=== PATIENT | female | born 2000 | race Two or more races ===

== ENCOUNTER 2019-01-23 17:11 | Inpatient (IN) | payer MEDICAID, OTHER ==
[~2019-01-23] VITALS: Ht 167.6 cm; Wt 67.3 kg
[2019-01-23 18:28] LABS: Urine Bacteria NONE SEEN /hpf (None Seen); Urine Blood 2+ /uL (Negative); Urine Hyaline Cast FEW /lpf (0 - 2); Urine Mucus FEW (None Seen); Urine Specific Gravity 1.008 (1.001-1.035); Urine WBC 4 /hpf (0 - 5)
[2019-01-23 19:13] LABS: Basophils # (auto) 0 uL; Basophils % (auto) 0.2 % (0.0-2.0); Eosinophils # (auto) 0 uL; Mean Corpuscular Volume 76.4 fL (80.0-100.0); Monocytes # (auto) 0.7 uL
[2019-01-23 19:16] LABS: Hematocrit 36.1 % (36.0-46.0); Hemoglobin 11.7 g/dL (12.2-16.2); Mean Corpuscular Hemoglobin 24.9 pg (28.0-32.0); Mean Corpuscular Hgb Conc. 32.6 g/dL (32.0-36.0); Monocytes % (auto) 7.3 % (0.0-12.0); Neutrophils # (auto) 8.2 uL; Neutrophils % (auto) 82.5 % (37.0-80.0); Nucleated Red Blood Cells % 0.1 %; Platelet Count (auto) 207 10^3/uL (140-450); Red Blood Cells 4.72 10^6/uL (4.0-5.20)
[2019-01-23 19:31] LABS: Albumin 3.7 g/dL (3.4-5.0); Calcium 8.8 mg/dL (8.5-10.1); Potassium 3.3 mmol/L (3.5-5.1)
[2019-01-23 19:34] LABS: Bilirubin, Total 0.3 mg/dL (0.2-1.0); Total Protein 8.6 g/dL (6.4-8.2)
[2019-01-23] MEDS ORDERED: IBUPROFEN 600 MG TAB PO ONE (22:00)
[2019-01-23] MEDS ORDERED: SODIUM CHLORIDE 0.9% 1,000 ML IV ONE (22:00)
[2019-01-23] MEDS ORDERED: MORPHINE SULFATE 4 MG/ML SYR/VIAL IV ONE (22:00)
[2019-01-23] MEDS ORDERED: ONDANSETRON HCL 4 MG/2 ML VIAL IV ONE (22:00)
[2019-01-23 22:21] LABS: Amylase 33 U/L (25-115); Lipase 33 U/L (73-393)
[2019-01-24] MEDS ORDERED: SODIUM CHLORIDE 0.9% 1,000 ML IV ONE (00:30)
[2019-01-24] MEDS ORDERED: IOHEXOL 300 MG/ML 100ML BOTTLE IJ ONE (00:34)
[2019-01-24] MEDS ORDERED: cefTRIAXone 1GM/50ML D5W 50 ML IV ONE (02:00)
[2019-01-24] MEDS ORDERED: MORPHINE SULFATE 4 MG/ML SYR/VIAL IV ONE (02:15)
[2019-01-24] MEDS ORDERED: PROMETHAZINE HCL 25 MG/ML 1ML IV ONE (03:30)
[2019-01-24] MEDS ORDERED: HYDROcodone-ACET 5/325MG TAB PO PRN (04:30)
[2019-01-24] MEDS ORDERED: ONDANSETRON HCL 4 MG/2 ML VIAL IV PRN (04:30)
[2019-01-24] MEDS ORDERED: ACETAMINOPHEN 325 MG TAB PO PRN (04:30)
[2019-01-24] MEDS: metroNIDAZOLE 500MG/100ML 100 ML IV SCH ×3 (06:00→21:34)
--- NOTE | 2019-01-24 08:04 | NUR ---
MS admit from ER AIXA HICKS admitted to tele/MS after SBAR received. Patient oriented to MORALES MARTÍNEZ, RN primary RN, unit, room, bed, and unit policies regarding patient care and visiting hours. Patient weighed by bed scale and encouraged to call if they need something. All questions and concerns addressed, patient verbalized understanding.
--- NOTE | 2019-01-24 08:30 | NUR ---
Opening Shift Note Assumed care of patient, awake, alert, and oriented x4. No S/S of distress/SOB or pain. IV is in left AC 20 gauge asymptomatic, intact, patent, and saline locked. Bed is locked and in lowest position and call light is within reach. Instructed on POC and to call for assist PRN, and patient verbalized understanding. Will continue to monitor for changes Q1hr and PRN.
--- NOTE | 2019-01-24 08:45 | NUR ---
Patient tolerated liquid diet for breakfast.
[2019-01-24] MEDS: cefTRIAXone 1GM/50ML D5W 50 ML IV SCH (08:53)
[2019-01-24] MEDS ORDERED: GOLYTELY 4L KIT PO ONE (10:45)
--- NOTE | 2019-01-24 10:45 | NUR ---
Dr. Andrews, Flitch Hanger, at bedside. New orders received.
--- NOTE | 2019-01-24 11:17 | NUR ---
Patient has agreed to have colonoscopy tomorrow.
[2019-01-24] MEDS: FAMOTIDINE 20 MG TAB PO SCH ×2 (11:55→21:34)
[2019-01-24 13:00] VITALS: BP 91/50
--- NOTE | 2019-01-24 13:20 | NUR ---
Sent stool sample to micro lab for culture at 1320.
--- NOTE | 2019-01-24 15:23 | NUR ---
Unable to send C-Diff sample that was ordered to lab; patient had 3 bowel movements, mushy brown with hard pieces in them.
[2019-01-24] MEDS: POTASSIUM CHLORIDE 20 MEQ in D5W/LACTATED RINGERS 1,000 ML IV SCH ×2 (16:30→22:44)
[2019-01-24 17:02] LABS: INR 1.08 (0.9-1.15); Partial Thromboplastin Time 33.8 sec (23.64-32.05)
[2019-01-24 17:32] VITALS: BP 100/54
--- NOTE | 2019-01-24 18:37 | NUR ---
Patient signed consents for colonoscopy procedure tomorrow; pre-procedure checklist is complete, and patient is to be NPO starting at midnight.
--- NOTE | 2019-01-24 21:06 | NUR ---
Assumed Pt Care Assumed pt care from KADI Wilson. Pt is a/ox4 with no s/s of distress or SOB. Pt is currently laying in bed with no complaints surrounded by family members. Discussed POC with pt; pt verbalized understanding. Safety measures maintained with side rails up, bed in lowest position and call light within reach. Will Continue to monitor for changes q1hr and prn.
[2019-01-24 22:40] VITALS: BP 105/68
[2019-01-25 05:27] VITALS: BP 103/63
[2019-01-25] MEDS: metroNIDAZOLE 500MG/100ML 100 ML IV SCH ×2 (05:44→14:00)
[2019-01-25] MEDS ORDERED: GOLYTELY 4L KIT PO ONE (06:00)
[2019-01-25 06:27] LABS: Basophils # (auto) 0 uL; Eosinophils # (auto) 0.1 uL; Hemoglobin 9.4 g/dL (12.2-16.2); Monocytes # (auto) 0.6 uL; Neutrophils # (auto) 1.5 uL; White Blood Cell 3.5 10^3/uL (4.4-10.8)
[2019-01-25 06:29] LABS: Basophils % (auto) 0.9 % (0.0-2.0); Eosinophils % (auto) 1.6 % (0.0-7.0); Hematocrit 28.7 % (36.0-46.0); Lymphocytes # (auto) 1.4 uL; Lymphocytes % (auto) 38.7 % (10.0-50.0); Mean Corpuscular Hemoglobin 24.8 pg (28.0-32.0); Mean Corpuscular Hgb Conc. 32.9 g/dL (32.0-36.0); Mean Corpuscular Volume 75.6 fL (80.0-100.0); Neutrophils % (auto) 41.8 % (37.0-80.0); Platelet Count (auto) 160 10^3/uL (140-450); Red Cell Distribution Width 16.1 % (11.8-14.3)
[2019-01-25 06:41] LABS: Calcium 8.1 mg/dL (8.5-10.1); Potassium 3.5 mmol/L (3.5-5.1)
--- NOTE | 2019-01-25 07:30 | NUR ---
Opening Shift Note Assumed care of patient, awake, alert, and oriented x4. No S/S of distress/SOB or pain. IV is in left AC and is asymptomatic, patent, intact, and infusing normal saline with 20 meQ of potassium at 100 mL/hour. Bed is locked and in lowest position and call light is within reach. Instructed on POC and to call for assist PRN, and patient verbalized understanding. Will continue to monitor for changes Q1hr and PRN.
--- NOTE | 2019-01-25 08:00 | NUR ---
Patient has been NPO since 0000 01/25/19, for colonoscopy procedure this morning.
[2019-01-25] MEDS ORDERED: SODIUM CHLORIDE LOCK 10 ML ONE (08:49)
[2019-01-25] MEDS ORDERED: diphenhdrAMINE HCL 50 MG/1 ML VL ONE (08:50)
[2019-01-25 09:20] VITALS: BP 104/63
[2019-01-25] MEDS: FAMOTIDINE 20 MG TAB PO SCH (09:33)
[2019-01-25] MEDS: cefTRIAXone 1GM/50ML D5W 50 ML IV SCH (11:18)
--- NOTE | 2019-01-25 12:00 | NUR ---
Patient taken down to Pre-op via hospital bed; no distress noted at time of departure.
[2019-01-25] MEDS: MIDAZOLAM HCL 5 MG/ML-1ML VIAL ONE ×3 (12:21→12:28)
[2019-01-25] MEDS: fentaNYL CITRATE 100 MCG/2 ML VL ONE ×2 (12:21→12:24)
[2019-01-25] MEDS: POTASSIUM CHLORIDE 20 MEQ in D5W/LACTATED RINGERS 1,000 ML IV SCH (12:42)
[2019-01-25 13:37] VITALS: BP 99/61
--- NOTE | 2019-01-25 14:00 | NUR ---
Patient returned from Post-op via hospital bed; no distress noted at time of arrival.
[2019-01-25 16:36] VITALS: BP 106/67
[2019-01-25 17:49] VITALS: BP 106/67
--- NOTE | 2019-01-25 18:00 | NUR ---
Dr. Yves MD, at bedside. New orders received.
--- NOTE | 2019-01-25 18:59 | NUR ---
Discharge instructions given as ordered. Encourage to follow up with PMD as instructed. All questions and concerns addressed. Patient verbalized understanding. Medication reconciliation form completed and copy given to patient. IV removed with catheter intact. Patient taken to vehicle via wheelchair with all personal belongings, accompanied by staff and family member. No distress noted at time of departure.
== END 2019-01-25 19:08 | disposition home or self-care (01) | DRG 249 ==
LOC: ER 17:11 → OVERFLOW 17:12 → EAST 01-24 07:53
PROVIDERS: ADMIT Nurse Practitioner; ATTEND Hospitalist
PROC: 0DBF8ZZ Excision of Right Large Intestine, Via Natural or Artificial Opening Endoscopic (ICD-10-PCS; principal; 2019-01-25 12:18)
DX: K52.9 Noninfective gastroenteritis and colitis, unspecified (principal); E86.0 Dehydration
CPT/HCPCS: 36415; 45380; 74177; 76705; 80048; 80053; 81001; 81025; 82150; 83605; 83690; 85025; 85610; 85730; 86850; 86900; 86901; 87040; 87045; 87899; 94761; 96361; 96365; 96375; 96376; G0378; J0696; J2250; J2405; J3490

== ENCOUNTER 2020-03-08 11:59 | Emergency (ER) | payer SELFPAY ==
[~2020-03-08] VITALS: Ht 167.6 cm; Wt 81.6 kg
[2020-03-08 12:08] VITALS: BP 127/86
[2020-03-08] MEDS ORDERED: PREN-96 PO (13:04)
== END 2020-03-08 14:59 | disposition home or self-care (01) ==
LOC: ER 11:59 → LDRP 12:25
PROVIDERS: ADMIT Specialist; ATTEND Specialist
DX: O20.0 Threatened abortion (principal)
CPT/HCPCS: 59025; 76815; 81002; 99284; G0378

== ENCOUNTER 2022-07-31 22:48 | Emergency (ER) | payer MEDICAID ==
[~2022-07-31] VITALS: Ht 167.6 cm; Wt 79.5 kg
[~2022-07-31 22:48] MED LIST: PREN-96 PO
[2022-07-31 23:17] VITALS: BP 132/86
[2022-07-31] MEDS ORDERED: ONDANSETRON ODT 4 MG TAB PO ONE (23:30)
[2022-07-31] MEDS ORDERED: KETOROLAC TROMETH 60MG/2ML VIAL IM ONE (23:30)
[2022-07-31 23:54] LABS: Basophils # (auto) 0 10 ^3/uL (0-0.2); Eosinophils # (auto) 0.1 10 ^3/uL (0-0.8); Eosinophils % (auto) 0.9 % (0.0-7.0); Lymphocytes # (auto) 1.3 10 ^3/uL (0.4-5.4)
[2022-07-31 23:57] LABS: Basophils % (auto) 0.4 % (0.0-2.0); Hemoglobin 11.8 g/dL (12.2-16.2); Lymphocytes % (auto) 19.4 % (10.0-50.0); Mean Corpuscular Hemoglobin 26.3 pg (28.0-32.0); Mean Corpuscular Hgb Conc. 33.6 g/dL (32.0-36.0); Mean Corpuscular Volume 78.3 fL (80.0-100.0); Monocytes # (auto) 0.7 10 ^3/uL (0-1.3); Neutrophils # (auto) 4.6 10 ^3/uL (1.6-8.6); Neutrophils % (auto) 69.3 % (37.0-80.0); Nucleated Red Blood Cells % 0.1 %; Red Blood Cells 4.47 10^6/uL (4.0-5.20); Red Cell Distribution Width 15.6 % (11.8-14.3); White Blood Cell 6.7 10^3/uL (4.4-10.8)
[2022-08-01 00:09] LABS: Urine Bacteria FEW /hpf (None Seen); Urine Blood Negative /uL (Negative); Urine Mucus FEW (None Seen); Urine Specific Gravity 1.009 (1.001-1.035); Urine WBC 30 /hpf (0 - 5)
[2022-08-01 00:44] LABS: Albumin 3.7 g/dL (3.4-5.0); BUN/Creatinine Ratio 11.1; Calcium 8.8 mg/dL (8.5-10.1); Potassium 3.8 mmol/L (3.5-5.1)
[2022-08-01 00:47] LABS: Bilirubin, Total 0.4 mg/dL (0.2-1.0); Total Protein 7.6 g/dL (6.4-8.2)
[2022-08-01 01:08] LABS: CRP High Sensitivity 0.44 mg/dL (< 0.3)
[2022-08-01] MEDS ORDERED: cefTRIAXone SOD 1,000 MG VL IM ONE (01:15)
[2022-08-01] MEDS ORDERED: ACET-1158 PO (01:33)
[2022-08-01] MEDS ORDERED: ONDA-144 PO (01:33)
[2022-08-01] MEDS ORDERED: NITR-87 PO (01:33)
== END 2022-08-01 01:34 | disposition home or self-care (01) ==
LOC: ER 22:49
DX: N39.0 Urinary tract infection, site not specified (principal)
CPT/HCPCS: 36415; 80053; 81001; 83690; 85025; 86141

== ENCOUNTER 2024-07-17 21:03 | Emergency (ER) | payer MEDICAID ==
[~2024-07-17] VITALS: Ht 167.6 cm; Wt 84.6 kg
[~2024-07-17 21:03] MED LIST changes: +ACET500T58 PO; +NITR-87 PO; +ONDA-144 PO
[2024-07-17 21:15] VITALS: BP 131/80; PULSE 88; RESP 18; O2SAT 97
[2024-07-17] MEDS ORDERED: ONDANSETRON HCL 4 MG/2 ML VIAL IV ONE (21:15)
--- NOTE | 2024-07-17 21:25 | ED.PDOC ---
STUD [employer]IR[employer] HPI Comments HPI: Poor Historian. HPI: 23-year-old female presents with a chief complaint of nausea and vomiting x onset yesterday. Patient is currently about 9 weeks , , has an established ST[employer] and her last ultrasound showed normal development. Patient reports that she has been attempting to eat lightly with things such as yogurt, but mentions that she was not able to hold anything down and would subsequently vomit. Patients LMP was May 02, 2024. Nonbilious nonbloody vomit. Denies any abdominal pain or any related issues. Patient denies any abdominal pain. PMHx: Denies PSHx: Denies Initial Vital Signs: BP: 131/80 HR: 88 Temp: 98.9F SpO2: 97% RR: 18 Past Medcial History: Past Surgical History: REVIEW OF SYSTEMS: CONSTITUTIONAL: Denies acute: fever, diaphoresis, chills, generalized weakness. HEAD: Denies acute: headache, photophobia Eyes: Denies acute: Double vision, vision loss, eye pain, eye discharge. EARS: Denies acute: tinnitus, hearing loss, ear discharge, ear pain, THROAT: Denies acute: sore throat, swelling, difficulty swallowing , pain with swallowing, change in voice. NECK: Denies acute: neck pain, neck swelling, stiff neck. HEART: Denies acute : chest pain, palpitations, LUNGS: Denies acute: SOB, wheezing, cough, hemoptysis ABDOMEN: Denies acute: abdominal pain, diarrhea, melena , hematemesis, hematochezia SKIN: Denies acute: rash, redness, lesions, itchiness. EXTREMITIES: Denies acute: calf pain, numbness, tingling, weakness, denies pain in extremity. Denies acute: Low back pain. Neuro: Denies acute: focal neurological deficit, motor or sensory focal neurological deficit, tremors, seizure like activity, confusion, dizziness, change in mental status, loss of bowel or bladder function, cauda equina like symptoms. : Denies acute: dysuria, hematuria, flank pain, increase in urinary frequency. PSYCH: Denies acute: hallucination, suicidal ideation, homicidal ideation. FEMALE: Denies acute: abnormal vaginal bleeding, foul odor, unusual discharge. PHYSICAL EXAM: General: no acute distress, awake and alert. Head: normocephalic, atraumatic. Neck: supple, trachea is midline, no swelling. Throat: Normal phonation. Eyes:, no erythema, no purulent discharge, no proptosis, no icterus. Heart: regular rate, regular rhythm, no significant murmur appreciated. Lungs: no apparent respiratory distress, Able to speak in full sentences. No wheezing, no rhonchi, no crackles. No stridors Clear to auscultation bilaterally. Abdomen: non tender to palpation, non distended, soft, no guarding, no rebound, + bowel sounds. Neuro: Awake, Alert, oriented to name, self, situation, follows commands GCS=15. Speech is normal. Skin: no petechia, no purpura, no cyanosis, non-pale, not jaundice. Lower extremities: --no - Pitting edema no deformity, no focal swelling, no calf TTP. Makes eye contact. moves all four extremities. Face: no apparent facial droop. Ambulating in the ED independently. Time Seen by MD: 21:20 Reviewed Notes: Nurses Notes, Allergies Allergies: Coded Allergies: NO KNOWN ALLERGIES (Unverified , 03/08/20) Home Meds Active Scripts Acetaminophen (Acetaminophen) 500 Mg Tab, 500 MG PO Q4HP PRN, #30 TAB Prov:SAM WAY PAC 08/01/22 Ondansetron (Zofran) 4 Mg Tab, 1 TAB PO Q6HR, #20 TAB Prov:SAM WAY PAC 08/01/22 Nitrofurantoin Monohydrate Mac (Macrobid) 100 Mg Cap, 100 MG PO BID for 7 Days, #14 CAP Prov:SAM WAY PAC 08/01/22 Reported Medications Vit W/ Ferrous Fumara ( One Daily) Daily Tab, 1 TAB PO DAILY, #30 TAB 11 Refills 03/08/20 Information Source: Patient Past Medical History PAST MEDICAL HISTORY: Denies Surgical History: Denies all surgeries DIE CUT OPERATOR History: No Pertinent DIE CUT OPERATOR History Family History Family History: Reviewed,noncontributory to illness Social History Smoker: Non-Smoker Alcohol: Denies ETOH Use Drugs: Denies Drug Use Lives In: Home Was a procedure done? Was a procedure done?: No Differential Diagnosis (DIE CUT OPERATOR) Vaginal Bleeding: N/A Mass / Lesion: N/A Vaginal Discharge: N/A Comments Hyperemesis gravidarum, electrolyte abnormality, infection, X-Ray, Labs, Meds, VS Vital Signs Date Time Temp Pulse Resp B/P (MAP) Pulse Ox O2 Delivery O2 Flow Rate FiO2 07/17/24 21:15 98.9 88 18 131/80 (97) 97 Lab Test 07/17/24 21:24 Range/Units White Blood Count 6.7 4.4-10.8 10^3/uL Red Blood Count 4.77 4.0-5.20 10^6/uL Hemoglobin 12.1 L 12.2-16.2 g/dL Hematocrit 36.4 36.0-46.0 % Mean Corpuscular Volume 76.4 L 80.0-100.0 fL Mean Corpuscular Hemoglobin 25.4 L 28.0-32.0 pg Mean Corpuscular Hemoglobin Concent 33.3 32.0-36.0 g/dL Red Cell Distribution Width 18.7 H 11.8-14.3 % Platelet Count 215 140-450 10^3/uL Mean Platelet Volume 11.0 H 6.9-10.8 fL Neutrophils (%) (Auto) 73.2 37.0-80.0 % Lymphocytes (%) (Auto) 17.7 10.0-50.0 % Monocytes (%) (Auto) 8.5 0.0-12.0 % Eosinophils (%) (Auto) 0.5 0.0-7.0 % Basophils (%) (Auto) 0.1 0.0-2.0 % Neutrophils # (Auto) 4.9 1.6-8.6 10 ^3/uL Lymphocytes # (Auto) 1.2 0.4-5.4 10 ^3/uL Monocytes # (Auto) 0.6 0-1.3 10 ^3/uL Eosinophils # (Auto) 0 0-0.8 10 ^3/uL Basophils # (Auto) 0 0-0.2 10 ^3/uL Nucleated Red Blood Cells 0.1 % Sodium Level 135 L 136-145 mmol/L Potassium Level 3.7 3.5-5.1 mmol/L Chloride Level 104 98-107 mmol/L Carbon Dioxide Level 20 20-31 mmol/L Anion Gap 11 5-15 Blood Urea Nitrogen 5 L 9-23 mg/dL Creatinine 0.71 0.550-1.02 mg/dL Glomerular Filtration Rate Calc 122 >90 mL/min BUN/Creatinine Ratio 7.0 L 10.0-20.0 Serum Glucose 81 74-106 mg/dL Calcium Level 9.8 8.7-10.4 mg/dL Total Bilirubin 0.4 0.2-1.0 mg/dL Aspartate Amino Transferase (AST) 16 13-40 U/L Alanine Aminotransferase (ALT) 29 7-40 U/L Alkaline Phosphatase 56 46-116 U/L Total Protein 7.9 5.7-8.2 g/dL Albumin 4.5 3.2-4.8 g/dL Time of 1ST Reevaluation: 21:50 Reevaluation 1ST: Unchanged Patient Education/Counseling: Other Family Education/Counseling: Other Comments Patient presented with the above HPI.--nausea and vomiting in ----workup was initiated. patient was found with the above mentioned diagnosis. the following medications were ordered: please refer to order lists of meds and tests obtained by myself Dr. Esquivel. I was informed that the patient eloped. Her ED workup was not finished. All the reports of any imaging studies that were ordered by myself were reviewed by myself. Departure 1 Departure Time of Disposition: 00:55 Impression: Primary Impression: Hyperemesis gravidarum Additional Impression: Eloped from emergency department Disposition: 07 LEFT AWOL/ELOPED Condition: Other Additional Instructions: Patient eloped Critical Care Note Critical Care Time?: No I personally scribed for ADAM ESQUIVEL DO ([email or web address]) on 07/17/24 at 21:25. Electronically submitted by Gucci Mccarthy ([email or web address]). ADAM ESQUIVEL DO Jul 17, 2024 21:25
[2024-07-17 21:46] LABS: Basophils # (auto) 0 10 ^3/uL (0-0.2); Eosinophils # (auto) 0 10 ^3/uL (0-0.8); Lymphocytes # (auto) 1.2 10 ^3/uL (0.4-5.4); Mean Corpuscular Volume 76.4 fL (80.0-100.0); Monocytes # (auto) 0.6 10 ^3/uL (0-1.3); Neutrophils # (auto) 4.9 10 ^3/uL (1.6-8.6); Nucleated Red Blood Cells % 0.1 %
[2024-07-17 21:48] LABS: Basophils % (auto) 0.1 % (0.0-2.0); Eosinophils % (auto) 0.5 % (0.0-7.0); Hematocrit 36.4 % (36.0-46.0); Hemoglobin 12.1 g/dL (12.2-16.2); Lymphocytes % (auto) 17.7 % (10.0-50.0); Mean Corpuscular Hemoglobin 25.4 pg (28.0-32.0); Mean Corpuscular Hgb Conc. 33.3 g/dL (32.0-36.0); Monocytes % (auto) 8.5 % (0.0-12.0); Neutrophils % (auto) 73.2 % (37.0-80.0); Platelet Count (auto) 215 10^3/uL (140-450); Red Blood Cells 4.77 10^6/uL (4.0-5.20); Red Cell Distribution Width 18.7 % (11.8-14.3); White Blood Cell 6.7 10^3/uL (4.4-10.8)
[2024-07-17 22:05] LABS: Alanine Aminotransferase 29 U/L (7-40); Albumin 4.5 g/dL (3.2-4.8); Alkaline Phosphatase 56 U/L (46-116); Anion Gap 11 (5-15); Aspartate Aminotransferase 16 U/L (13-40); Bilirubin, Total 0.4 mg/dL (0.2-1.0); Calcium 9.8 mg/dL (8.7-10.4); Carbon Dioxide 20 mmol/L (20-31); Chloride 104 mmol/L (98-107); Glucose 81 mg/dL (74-106); Potassium 3.7 mmol/L (3.5-5.1); Total Protein 7.9 g/dL (5.7-8.2)
[2024-07-17 22:07] LABS: Blood Urea Nitrogen 5 mg/dL (9-23); Sodium 135 mmol/L (136-145)
== END 2024-07-18 00:53 | disposition left against medical advice (07) ==
LOC: ER 21:03
DX: O21.1 Hyperemesis gravidarum with metabolic disturbance (principal); Z3A.09 9 weeks gestation of pregnancy
CPT/HCPCS: 36415; 80053; 85025